=== PATIENT | male | born 2000 | race Caucasian/White ===

== ENCOUNTER → 2019-11-10 10:41 | Outpatient (BNVA) | payer OTHER, SELFPAY | PROVIDERS: Visit Provider Nurse Practitioner Family | DX: M25.50 Pain in unspecified joint (principal); M54.5 Low back pain; Z86.19 Personal history of other infectious and parasitic diseases | CPT/HCPCS: 80053; 85025; 85651 ==

== ENCOUNTER → 2020-10-31 11:54 | Outpatient (BNVA) | payer OTHER, SELFPAY | PROVIDERS: Visit Provider Nurse Practitioner Family | DX: J06.9 Acute upper respiratory infection, unspecified (principal); Z20.822 Contact with and (suspected) exposure to COVID-19 | CPT/HCPCS: 87635 ==